=== PATIENT | female | born 1965 | race Caucasian/White ===

== ENCOUNTER 2018-06-26 07:29 | Outpatient (CLI) | payer OTHER, SELFPAY ==
--- NOTE | 2018-06-26 15:30 | DI.MAMMO_ITS ---
SYMPTOM/DIAGNOSIS: SCREENING FOR BREAST CANCER, Z12.31 BILATERAL SCREENING MAMMOGRAM: Mammograms were interpreted according to the usual protocol including computer analysis with CAD system, tomosynthesis and C view imaging. Comparison is made with exams from 2012 through 2017. The breasts are composed of heterogeneously dense fibroglandular tissue, breast density category C. No suspicious masses or suspicious microcalcifications are seen. There has been no significant change. IMPRESSION: Category 1-C, negative mammogram. Yearly screening mammography is recommended. [facility] ASSESSMENT OF FINDINGS: Negative. Category 1. Patient will receive a letter notifying them of these results. Bi-RADS category C. The breasts are heterogeneously dense, which may obscure small masses.
== END 2018-06-26 07:49 ==
PROVIDERS: PCP Internal Medicine; Visit Provider Internal Medicine
DX: Z12.31 Encounter for screening mammogram for malignant neoplasm of breast (principal)
CPT/HCPCS: 77063; 77067

== ENCOUNTER 2019-07-22 12:46 | Outpatient (REF) | payer OTHER, SELFPAY ==
--- NOTE | 2019-07-22 11:30 | PAPFT_PTH ---
PATIENT: Nicole Weir LOC: [facility] U#:[id number] AGE/SX: 54/F ROOM: RE07/22/[address]: Sweta Lees MD : [id number] BED: DIS: 07/22/2019 SPEC #: [id number] RECD: 07/23/19 13:06 STATUS: BLANKA REBrad #: [id number] CHARI: 07/22/19 11:[address]: Sweta Lees DEPT: [facility] Cytology RECD BY: Tamika Roldan Tissues: 1 - CX/ENDOCX FOR PAP SMEARS Procedures: PAP THIN PREP/UVM Screening HPV DNA PROBE Comments: [id number]
== END 2019-07-22 13:06 ==
LOC: LBN 12:46
PROVIDERS: PCP Internal Medicine; Visit Provider Internal Medicine
DX: Z12.4 Encounter for screening for malignant neoplasm of cervix (principal); Z11.51 Encounter for screening for human papillomavirus (HPV)
CPT/HCPCS: 88142; 87624

== ENCOUNTER 2019-10-26 02:01 | Outpatient (CLI) | payer OTHER, SELFPAY ==
--- NOTE | 2019-10-26 09:42 | DI.MAMMO_ITS ---
EXAM: MAMMO SCREENING CLINICAL HISTORY: screening,Z12.39 TECHNIQUE: Mammograms were interpreted according to the usual protocol including computer analysis w [employer] CAD system, tomosynthesis and C-view imaging. COMPARISON: FINDINGS: The breasts are heterogeneously dense. No dominant mass or clumped microcalcification is identified in either breast. The current examination is compared with multiple prior studies including May 2018. There is question of increased prominence of a focal area of asymmetric density projected in t he central portion of the left breast on CC view only. Additional mammographic views of this area ar e requested due to include CC spot compression view of left breast. No other significant change seen . IMPRESSION: Additional mammographic views left breast requested as described above. Breast ultrasound may be ind icated as well depending results additional views. BI-RADS Cat 0 - Assessment Incomplete: Need additional imaging evaluation: Breast Density - Category C - Heterogeneously dense:
== END 2019-10-26 02:21 ==
PROVIDERS: PCP Internal Medicine; Visit Provider Internal Medicine
DX: Z12.31 Encounter for screening mammogram for malignant neoplasm of breast (principal); R92.8 Other abnormal and inconclusive findings on diagnostic imaging of breast
CPT/HCPCS: 77063; 77067

== ENCOUNTER 2019-10-30 01:28 | Outpatient (CLI) | payer OTHER, SELFPAY ==
--- NOTE | 2019-10-30 | DI.US_ITS ---
EXAM: US BREAST LT LIMITED CLINICAL HISTORY: F/U MAMMO, ? INCREASED PROMINENCE ASYMMETRIC DENSITY CENTRAL PORTION LT TECHNIQUE: Ultrasound performed using standard protocol. COMPARISON: US PELVIS TRANSVAG from 11/15/2014 FINDINGS: Additional mammographic views the left breast and left breast ultrasound are interpreted in conjuncti on. These examinations were obtained to evaluate questionable area of asymmetric density projected i n central portion left breast on recent mammogram. Additional mammographic views fail to show a disc rete mass. Breast ultrasound shows dense fibroglandular tissue but no evidence of mass or cyst. IMPRESSION: No specific evidence of malignancy at this time. Follow-up unilateral left breast mammogram recommen ded in 6 months. BI-RADS Cat 3 - 6 month - Probably Benign Finding: Recommend follow-up mammography in 6 months Breast Density - Category C - Heterogeneously dense DATA REPOSITORY:
== END 2019-10-30 01:48 ==
PROVIDERS: PCP Internal Medicine; Visit Provider Surgery
DX: Z12.31 Encounter for screening mammogram for malignant neoplasm of breast (principal); R92.8 Other abnormal and inconclusive findings on diagnostic imaging of breast; N64.59 Other signs and symptoms in breast
CPT/HCPCS: 76642; 77063; 77067

== ENCOUNTER 2019-11-02 08:02 | Day surgery (SDC) | payer OTHER, SELFPAY ==
--- NOTE | 2019-11-02 06:55 | W.COLOREPORT ---
Date of service: 11/02/19 Time of Service: 10:03 Colonoscopy Report Date of procedure: 11/02/19 Pre-op diagnosis general: Family history of colon cancer, screening colonoscoopy Post-op diagnosis procedure note: same Procedure: Colonoscopy Surgeon: Natividad Simmons Anesthesia proc note operative: other (General/ ASA 3/Connie Gleason CRNA ) Estimated blood loss (mL): 0 Pathology: none sent Complications: None Disposition: same day Indications: 54-year-old female here to discuss a colonoscopy. Her last colonoscopy was 5 years ago and was normal. She does have a family history of colon cancer in her sister. Plan for Colonoscopy under sedation Risks, benefits and complications have been reviewed. Complications include but are not limited to bleeding, pain, perforation, missed small lesion/polyp, sore throat, aspiration and adverse reaction to the medications. Questions were entertained and answered to their satisfaction and they wished to proceed. No guarantees were given or implied. Prep: Miralax/Dulcolax Procedure Start Time: 10:03 Procedure End Time: 10:19 Retraction Time: 12 minutes Findings: Normal colon Procedure Description: After informed consent was obtained the patient was taken to the procedure room and placed in a left decubitous position. Monitors were applied and a time out was done. The patients name, date of , procedure, allergies to medications and metal in their body was reviewed. The patient was then sedated. Once sedated and comfortable a rectal exam was done. External exam was normal. Internal exam revealed a normal sphincter tone and no palpable masses. The scope was then introduced and retro-flexed. No internal hemorrhoids were identified. The scope was then advanced to the cecum without difficulty. The TI and appendiceal orifice were identified. The prep was good. The scope was then slowly retracted over 12 minutes back into the rectum. There were no diverticula and no polyps. The scope was removed and the patient was woken up and taken back to Same day surgery in stable condition. The patient tolerated the procedure well and there were no immediate complications. Follow up: The patient should follow up in 5 years unless they develop changes in bowel habits or other new gastrointestinal complaints.
--- NOTE | 2019-11-02 06:56 | PDOC.DSDIS_ITS ---
Discharge Plan Disposition Patient Disposition: HOME Condition: Good Discharge Details Reason For Visit: FHX of colon Cancer, screening colonoscopy Attending Provider: Natividad Simmons Primary Care Provider: Sweta Lees Home Meds and New Rx's Prescriptions: Continued triamcinolone acetonide 0.1 % cream 1 applic Topical DAILY PRN (Reason: dyshidrotic eczema) Qty: 15 RF: 0 multivitamin 1 EACH tablet 1 ea PO DAILY RF: 0 loratadine [Claritin] 10 MG tablet 10 mg PO DAILY RF: 0 calcium carbonate-vitamin D3 [Caltrate with Vitamin D3] 1 EACH tablet 1 ea PO DAILY RF: 0 pseudoephedrine HCl [Sudafed 12 Hour] 120 MG tablet extended release 120 mg PO DAILY RF: [facility], sprinkle 1 ea PO DAILY RF: 0 ascorbic acid (vitamin C) [Vitamin C] 500 MG tablet 1 tab PO DAILY RF: 0 Discontinued bisacodyl [Dulcolax (bisacodyl)] 5 mg tablet,delayed release (DR/EC) 5 mg PO ONCE Qty: 4 RF: 0 polyethylene glycol 3350 17 gram powder in packet 255 g PO DAILY Qty: 15 RF: 0 Discharge Instructions Additional Instructions: Findings: normal colon Follow up: 5 years Please call if you develop: fevers >101.5 Nausea or Vomiting Abdominal pain that is not transient DAY SURGERY UNIT POST ENDOSCOPY INSTRUCTIONS 1. Because there will be medication in your system for the next 24 hours, you may feel a little sleepy. Your coordination will be affected. Therefore: a. Do not drive or operate dangerous equipment for 24 hours. b. Do not drink alcohol beverages for 24 hours (not even beer). c. Plan to go home and rest for the day. 2. Generally there are no restrictions on your activity after a day or so has gone by, but you may feel a bit fatigued for a few days. 3 After you arrive home you may have a light meal and return to a normal diet as you can tolerate it without feeling sick to your stomach. 4. After surgery, you may feel pain or discomfort. This should be only transient, but if it persists please contact your doctor. 5. If there are any questions regarding the findings of your procedure, please feel free to contact your doctor. 6. If you are unable to contact your doctor with a problem, contact the hospital at [phone]. 7. Continue all your regular medications unless directed otherwise. I understand the above instructions and have no questions. Signature of Patient or Responsible Adult Escort Date/Time Name of Responsible Adult Escort Signature of Nurse Date/Time Activity:: Activity as Tolerated Diet:: As Tolerated Discharge Orders Discharge Orders: Discharge Order (Routine); Ordered 11/02/19 Ordered By: Natividad Simmosn
[2019-11-02 08:08] VITALS: BP 143/79; PULSE 73; RESP 18; TEMP 36.7; O2SAT 98
[2019-11-02] MEDS: Lactated Ringers 1,000 ML 80 ML IV (08:39)
[2019-11-02 10:54] VITALS: BP 125/66; PULSE 64; RESP 18; TEMP 36.4; O2SAT 97
== END 2019-11-02 11:15 | disposition home or self-care (01) ==
LOC: SUR 08:02
PROVIDERS: PCP Internal Medicine; Visit Provider Surgery
PROC: 0DJD8ZZ Inspection of Lower Intestinal Tract, Via Natural or Artificial Opening Endoscopic (ICD-10-PCS; CPT 45378; principal; 2019-11-02 09:00)
DX: Z12.11 Encounter for screening for malignant neoplasm of colon (principal); Z80.0 Family history of malignant neoplasm of digestive organs
CPT/HCPCS: 45378; J2001

== ENCOUNTER 2020-11-30 02:54 | Outpatient (CLI) | payer OTHER, SELFPAY ==
[2020-11-30 10:13] LABS: Calculated LDL 164 mg/dL (<100); Cholesterol 249 mg/dL (<200); Glucose 105 mg/dL (74-106); HDL Cholesterol 70 mg/dL (40-60); Triglyceride 75 mg/dL (<150)
== END 2020-11-30 02:55 | disposition home or self-care (01) ==
LOC: LBO 02:54
PROVIDERS: PCP Internal Medicine; Visit Provider Internal Medicine
DX: Z13.220 Encounter for screening for lipoid disorders (principal); Z13.1 Encounter for screening for diabetes mellitus; Z83.3 Family history of diabetes mellitus
CPT/HCPCS: 36415; 80061; 82947

== ENCOUNTER 2021-01-04 02:06 | Outpatient (CLI) | payer OTHER, SELFPAY ==
--- NOTE | 2021-01-04 07:15 | DI.MAMMO_ITS ---
Exam(s) MAMMO SCREENING EXAM: MAMMO SCREENING CLINICAL HISTORY: screening,Z12.39 TECHNIQUE: Mammograms were interpreted according to the usual protocol including computer analysis w [employer] CAD system, tomosynthesis and C-view imaging. COMPARISON: 2011 through 2019 FINDINGS: The breasts are composed of heterogeneously dense fibroglandular densities, Breast Density category C . No suspicious masses or suspicious microcalcifications are seen. No skin thickening or abnormal axillary lymph nodes are seen. There has been no significant change from prior exams. IMPRESSION: BI-RADS Category 1, Negative mammogram. Yearly screening mammography is recommended. Breast Density Category C, heterogeneously Dense. The mammogram demonstrates the patient's breast tissue is dense. Dense breast tissue is very common a nd is not abnormal but dense breast tissue can make it harder to find cancer on a mammogram. Also, de nse breast tissue may increase breast cancer risk. This information about the result of the mammogram report was provided to the patient to raise their awareness. Use this report when you speak with the patient about their risks for breast cancer, which includes their family history. At that time, you may recommend additional screening tests (Ultrasound or MRI) as they might be useful based on their r isk. A negative radiographic report should not delay biopsy if a dominant or clinically suspicious mass is present. Up to ten percent of cancers are not identified on mammography. A negative report may reinforce clinical impression. Adenosis and dense breasts may obscure an underlying neoplasm. False positive reports average 6 to 10%.
== END 2021-01-04 02:26 ==
PROVIDERS: PCP Internal Medicine; Visit Provider Internal Medicine
DX: Z12.31 Encounter for screening mammogram for malignant neoplasm of breast (principal)
CPT/HCPCS: 77063; 77067

== ENCOUNTER → 2022-04-24 01:52 | Outpatient (CLI) | payer OTHER, SELFPAY ==
--- NOTE | 2022-04-24 07:30 | DI.MAMMO_ITS ---
Exam(s) MAMMO SCREENING EXAM: MAMMO SCREENING CLINICAL HISTORY: screening,z12.39 TECHNIQUE: Bilateral full field digital CC and MLO mammographic images were obtained with 3D tomosyn thesis and utilizing computer aided detection (CAD). COMPARISON: Available for comparison. FINDINGS: Masses/Architectural Distortion: None seen. Microcalcifications: No suspicious pleomorphic-type are seen. Skin Thickening/Nipple Retraction: None. IMPRESSION: 1. No significant interval change with no specific features of malignancy noted. 2. Unless there is more urgent need, screening mammography is recommended, as per [place] [employer] guidelines. BI-RADS Category 1 - Negative Breast Density - Category C - Heterogeneously dense Breast density category C or D implies that the patient has dense breast tissue. Dense breast tissue is very common and is not abnormal but dense breast tissue can make it harder to find cancer on a ma mmogram. Also, dense breast tissue may increase their breast cancer risk. This information about the result of the mammogram report was provided to the patient to raise their awareness. Use this report when you speak with the patient about their risks for breast cancer, which includes their family hist ory. At that time, you may recommend for more screening tests (Ultrasound or MRI) as they might be us eful based on their risk. A negative radiographic report should not delay biopsy if a dominant or clinically suspicious mass is present. Up to ten percent of cancers are not identified on mammography. A negative report may reinforce clinical impression. Adenosis and dense breasts may obscure an underlying neoplasm. False positive reports average 6 to 10%. Patient will receive a letter notifying them of these results.
== END ==
PROVIDERS: PCP Nurse Practitioner; Visit Provider Nurse Practitioner
DX: Z12.31 Encounter for screening mammogram for malignant neoplasm of breast (principal); R92.8 Other abnormal and inconclusive findings on diagnostic imaging of breast
CPT/HCPCS: 77063; 77067

== ENCOUNTER 2022-07-03 03:47 | Outpatient (CLI) | payer OTHER, SELFPAY ==
[2022-07-03 09:03] LABS: HCT 40.9 % (36.0-46.0); HGB 13.4 g/dL (11.2-15.7); MCH 30.9 pg (27.0-33.0); MCHC 32.8 % (32.0-36.0); MCV 94 fL (80-95); MPV 11.2 fL (8.0-11.0); Platelet Count 247 10^3/uL (130-400); RBC 4.34 10^6/uL (3.93-5.22); RDW 12.1 % (11.7-14.6); RDW-SD 42.5 fL; WBC 5.76 10^3/uL (4.4-10.8)
[2022-07-03 09:18] LABS: Hemoglobin A1C 5.6 % (<5.7)
[2022-07-03 09:40] LABS: ALT 16 U/L (14-59); AST 14 U/L (15-37); Albumin 4.1 g/dL (3.4-5.0); Alkaline Phosphatase 89 U/L (46-116); Anion Gap 6.6 mmol/L (3-11); BUN 14 mg/dL (7-18); Bilirubin, Total 0.4 mg/dL (0.2-1.0); CO2 31.4 mmol/L (21.0-32.0); CREATININE 0.9 mg/dL (0.55-1.02); Calcium 9.8 mg/dL (8.5-10.1); Chloride 102 mmol/L (98-107); Glucose 100 mg/dL (74-106); Potassium 4.2 mmol/L (3.5-5.1); Sodium 140 mmol/L (136-145); Total Protein 7.6 g/dL (6.4-8.2)
[2022-07-04 16:47] LABS: Lab Add On Test DONE
[2022-07-04 18:14] LABS: Cholesterol 263 mg/dL (<200)
[2022-07-04 18:15] LABS: Calculated LDL 169 mg/dL (<100); Triglyceride 112 mg/dL (<150)
[2022-07-04 18:16] LABS: HDL Cholesterol 72 mg/dL (40-60)
== END 2022-07-03 03:48 | disposition home or self-care (01) ==
PROVIDERS: PCP Nurse Practitioner; Visit Provider Nurse Practitioner
DX: Z83.3 Family history of diabetes mellitus (principal); E66.8 Other obesity; Z13.1 Encounter for screening for diabetes mellitus
CPT/HCPCS: 36415; 80053; 80061; 85027; 83036

== ENCOUNTER 2024-03-25 00:36 | Outpatient (CLI) | payer OTHER, SELFPAY ==
--- NOTE | 2024-03-25 12:07 | DI.MAMMO_ITS ---
Exam(s) MAMMO SCREENING EXAM: MAMMO SCREENING CLINICAL HISTORY: screening,Z12.39 TECHNIQUE: Mammograms were interpreted according to the usual protocol including computer analysis w [employer] CAD system, tomosynthesis and C-view imaging. COMPARISON: 2014 through 2021 FINDINGS: The breasts are composed of heterogeneously dense fibroglandular densities, Breast Density category C . No suspicious masses or suspicious microcalcifications are seen. No skin thickening or abnormal axillary lymph nodes are seen. There has been no significant change from prior exams. IMPRESSION: BI-RADS Category 1, Negative mammogram. Yearly screening mammography is recommended. Breast Density Category C, heterogeneously Dense. The mammogram demonstrates the patient's breast tissue is dense. Dense breast tissue is very common a nd is not abnormal but dense breast tissue can make it harder to find cancer on a mammogram. Also, de nse breast tissue may increase breast cancer risk. This information about the result of the mammogram report was provided to the patient to raise their awareness. Use this report when you speak with the patient about their risks for breast cancer, which includes their family history. At that time, you may recommend additional screening tests (Ultrasound or MRI) as they might be useful based on their r isk. A negative radiographic report should not delay biopsy if a dominant or clinically suspicious mass is present. Up to ten percent of cancers are not identified on mammography. A negative report may reinforce clinical impression. Adenosis and dense breasts may obscure an underlying neoplasm. False positive reports average 6 to 10%.
== END 2024-03-25 00:56 ==
LOC: DI 00:37
PROVIDERS: PCP Nurse Practitioner; Visit Provider Nurse Practitioner
DX: Z12.31 Encounter for screening mammogram for malignant neoplasm of breast (principal)
CPT/HCPCS: 77063; 77067

== ENCOUNTER 2024-08-21 08:06 | Day surgery (SDC) | payer OTHER, SELFPAY ==
[2024-08-21 08:20] VITALS: BP 150/72; PULSE 75; RESP 20; TEMP 36; O2SAT 97
[2024-08-21] MEDS: Lactated Ringers 1,000 ML 80 ML IV (08:39)
--- NOTE | 2024-08-21 09:03 | W.ANESPRE ---
General Info Date of Service Date Performed: 08/21/24 Height: 5 ft 2 in Weight: 97.5 kg Body Mass Index (BMI): 39.3 Surgical Procedure: Operation Date: 08/21/24 09:05 Proposed Procedure Side Surgeon p Colonoscopy Arlene Rothman MD Meds Allergies and Home Medications Allergies Allergy/AdvReac Type Severity Reaction Status Date / Time sulfamethoxazole (From Allergy Intermediate Skin Rash Verified 08/21/24 08:18 Bactrim) trimethoprim (From Bactrim) Allergy Intermediate Skin Rash Verified 08/21/24 08:18 Home Medication ?Medication ?Instructions ?Recorded multivitamin 1 ea PO DAILY 10/07/12 calcium 600 mg (as 1 ea PO DAILY 10/25/14 carbonate)-vitamin D3 20 mcg (800 unit) tablet (Caltrate with Vitamin D3) ascorbic acid (vitamin C) 500 mg 1 tab PO DAILY 03/30/15 tablet (Vitamin C) Lactobacil rhamnosus GG 10 billion 1 ea PO DAILY 11/08/15 cell-inulin 200 mg sprinkle capsule ([facility]) triamcinolone acetonide 0.1 % 1 applic topical DAILY PRN 06/24/18 topical cream dyshidrotic eczema #15 grams pseudoephedrine HCl 120 mg 120 mg PO DAILY PRN 03/22/22 tablet,extended release (Sudafed 12 Hour) bisacodyl 5 mg tablet,delayed 5 mg PO ONCE colonscopy bowel prep 08/06/24 release (Dulcolax (bisacodyl)) #8 tabs bisacodyl 5 mg tablet,delayed 5 mg PO QHS 08/06/24 release (Dulcolax (bisacodyl)) polyethylene glycol 3350 17 238 g PO ONCE colonoscopy prep 08/06/24 gram/dose oral powder #238 grams Current Visit Medications: Current Medications Generic Name Dose Route Start Last Admin Trade Name Freq PRN Reason Stop Dose Admin Ringer's Solution 1,000 mls @ 80 mls/hr 08/21/24 06:00 08/21/24 08:39 IV 08/21/24 23:59 80 mls/hr INFUSION EMILIA Administration IV Miscellaneous Supplies 1 each 08/21/24 06:00 Iv Access IV 08/21/24 23:59 DIRECTED EMILIA Sodium Chloride 0 ml 08/21/24 06:00 Normal Saline Flush 10 Ml Syr IV 08/21/24 23:59 PRN PRN Sodium Chloride 0 ml 08/21/24 06:00 Normal Saline 10 Ml Vial IJ 08/21/24 23:59 DIRECTED PRN Sterile Water 0 ml 08/21/24 06:00 Water,Injection,Sterile 10 Ml Vial IJ 08/21/24 23:59 DIRECTED PRN PFSH Active Problems Active Problems: Problem Status Onset Code Screening for colorectal cancer Acute Z12.11, Z12.12 Medical History Medical History Acute cholecystitis (10/02/14) Dyshidrotic eczema Family history of colon cancer (10/25/14) Family history of diabetes mellitus (09/14/11) bmi: Normal colonoscopy (~10/2019) Obesity, Class III, BMI 40-49.9 (morbid obesity) Surgical History Surgical History section (05/27/93) Cholecystectomy (10/03/14) Colonoscopy - IV Sedation (03/30/15) DR.TERRY LITTLE H/O surgical procedure a. b. parotid tumor resection Hx of parotidectomy Tobacco Smoking/Tobacco Use Status: Never Passive smoking exposure: No Second hand exposure: No Alcohol Alcohol Intake: current Alcohol intake frequency: 0-2 drinks per day Substance Use Substance use: Never Substance use type: does not use Vital Signs and Lab Results Vital Signs Most Recent Vital Signs in EMR: Most Recent Vital Signs Temp Pulse Resp BP Pulse Ox 36.0 C L 75 20 150/72 H 97 08/21/24 08:20 08/21/24 08:20 08/21/24 08:20 08/21/24 08:20 08/21/24 08:20 Lab Results Blood Type / Crossmatch: No Data to Display Complete Blood Count: No Data to Display Complete Metabolic Panel: No Data to Display Liver Function Panel: No Data to Display Coagulation Panel: No Data to Display Cardiac Panel: No Data to Display Arterial Blood Gas: No Data to Display Venous Blood Gas: No Data to Display Pancreas Panel: No Data to Display Thyroid Panel: No Data to Display Infectious Disease: No Data to Display Blood Cultures: No Data to Display Toxicology Panel: No Data to Display Anesthesia Assessment and Plan Anesthesia History Personal History: Delayed Emergence (no issues with last colonoscopy) Family History: No Family History of Anesthesia Complications Exercise Tolerance Exercise Tolerance: Metabolic Equivalents>4 Pertinent Negatives Pertinent Negatives: No Symptoms of GERD, No Major Cardiovascular Symptoms or Complaints, No Major Pulmonary Symptoms or Complaints and No History of CVA/TIA Cardiac & Pulmonary Exam Cardiac Exam: Normal S1/S2 Heart Sounds Pulmonary Exam: Clear Bilateral Breath Sounds Implantable Cardiac Device Does patient have a Pacemaker or an ICD?: No Airway Exam Known Difficult Airway: No Mallampati Class: 2 Mouth Opening: Normal (> 3cm) Thyromental Distance: Greater than 3 cm Neck Range of Motion: Full ROM Neck Circumference: Normal Teeth Condition: Normal Dentition ASA Classification ASA Score: ASA 3 Emergency Case?: No NPO Status NPO Status: NPO Clears >2 hours, Solids >8 hours Anesthesia Plan Resuscitation Status: Full Code Anesthesia Technique: General Anesthesia Airway Planned: Natural Airway Monitors Used: Standard Monitors
[2024-08-21 09:05] VITALS: BMI 39.3
--- NOTE | 2024-08-21 09:08 | W.PM.HP.N ---
Date of service: 08/21/24 Time of Service: :08 Assessment and Plan Assessment and plan (1) Screening for colorectal cancer: Status: Acute Assessment and plan: I have explained the procedure of colonoscopy including the use of conscious sedation. I have outlined the risks of the procedure including those of bowel perforation, bleeding after a polypectomy, oversedation, and inability to complete the exam. The patient agrees to proceed and signed the consent form. History of Present Illness Narrative: This patient presents today for screening colonoscopy. She has had previous colonoscopies, had no difficulty with her bowel preparation. Review of Systems Narrative: Patient denies easy fatigue, poor appetite Cardiac: denies chest pain or irregular heartbeat Respiratory: denies dyspnea, SOLIS, cough Heme: denies easy bleeding, easy bruising PFSH All Active Problems Screening for colorectal cancer (Acute) Medical History Normal colonoscopy (~10/2019) Dyshidrotic eczema Obesity, Class III, BMI 40-49.9 (morbid obesity) Family history of colon cancer (10/25/14) Family history of diabetes mellitus (09/14/11) bmi: Acute cholecystitis (10/02/14) Surgical History Hx of parotidectomy section (05/27/93) Colonoscopy - IV Sedation (03/30/15) DR.TERRY LITTLE Cholecystectomy (10/03/14) H/O surgical procedure a. b. parotid tumor resection Family History Mother , pre leukemia, 2004, 78 years Essential hypertension Myeloid dysplasia Sister Personal history of malignant neoplasm 03/31/15 dx with colon CA RH Diabetes Father Pancreatic cancer Diabetes Social History Smoking/Tobacco Use Status: Never Second Hand Exposure: No Smoking risk assessment performed?: Yes Alcohol Intake: current Alcohol Intake frequency: 0-2 drinks per day Drug use: Never Substance use type: does not use Adopted: No Caregiver/Support person: No Foster care: No Household members: spouse Housing: house Number of Children: 1 number of grandchildren: 0 Communication Needs: None and Corrective Lenses Education Level: college Details: BS degree Do you need help understanding health information?: Never current occupation: retired educational administrator at [employer] Pets and animals: Yes Pets and animals: cat(s) Do you think of yourself as: straight/heterosexual Current gender identity: female What is your relationship status?: How often do you talk on the phone with friends or family?: once per week How often do you attend judaism or orthodox services?: decline to answer Do you belong to any clubs or organized social groups?: no Panel score (0-1 are the most socially isolated patients): 1 What type of physical activity do you participate in: bicycling and regular exercise Duration: 15-30 minutes/day Frequency: 3-4 times per week Jolene/Moravian: Rastafari Special jolene needs: No Seatbelt use: always Helmet use: Yes Drive intox or ride w/intox transporter driver: No Working smoke detector in home: Yes Fire extinguisher in home: Yes Carbon monox detector in home: Yes Do you feel safe at home: Yes Do you feel safe in your relationship?: Yes Victim of physical abuse: No Victim of emotional abuse: No Victim of sexual abuse: No Meds Allergies and Home Medications Allergies Allergy/AdvReac Type Severity Reaction Status Date / Time sulfamethoxazole (From Allergy Intermediate Skin Rash Verified 08/21/24 08:18 Bactrim) trimethoprim (From Bactrim) Allergy Intermediate Skin Rash Verified 08/21/24 08:18 Home Medications ?Medication ?Instructions ?Recorded ?Confirmed ?Type multivitamin 1 ea PO DAILY 10/07/12 08/21/24 History calcium 600 mg (as 1 ea PO DAILY 10/25/14 08/21/24 History carbonate)-vitamin D3 20 mcg (800 unit) tablet (Caltrate with Vitamin D3) ascorbic acid (vitamin C) 500 mg 1 tab PO DAILY 03/30/15 08/21/24 History tablet (Vitamin C) Lactobacil rhamnosus GG 10 billion 1 ea PO DAILY 11/08/15 08/21/24 History cell-inulin 200 mg sprinkle capsule ([facility]) triamcinolone acetonide 0.1 % 1 applic topical DAILY PRN 06/24/18 08/21/24 Rx topical cream dyshidrotic eczema #15 grams pseudoephedrine HCl 120 mg 120 mg PO DAILY PRN 03/22/22 08/21/24 History tablet,extended release (Sudafed 12 Hour) bisacodyl 5 mg tablet,delayed 5 mg PO ONCE colonscopy bowel prep 08/06/24 08/19/24 Rx release (Dulcolax (bisacodyl)) #8 tabs bisacodyl 5 mg tablet,delayed 5 mg PO QHS 08/06/24 08/19/24 History release (Dulcolax (bisacodyl)) polyethylene glycol 3350 17 238 g PO ONCE colonoscopy prep 08/06/24 08/19/24 Rx gram/dose oral powder #238 grams Exam Narrative Exam Narrative: Constitutional: appears well, alert, oriented, NAD HEENT: normal appearance, head atraumatic, Neck midline Chest: clear to auscultation Cor: RRR S1 S2 no murmur abdo: obese, soft and non tender Psych: normal mood and affect Results Last Vital Signs Temp 36.0 C L 08/21/24 08:20 Pulse 75 08/21/24 08:20 Resp 20 08/21/24 08:20 BP 150/72 H 08/21/24 08:20 Pulse Ox 97 08/21/24 08:20 Time Spent Time spent with Patient: <40 minutes Time was spent: preparing to see the patient(eg.review tests), obtaining and/or reviewing separately otained hiistory and counseling the patient
--- NOTE | 2024-08-21 09:42 | W.COLOREPORT ---
Date of service: 08/21/24 Time of Service: 09:42 Colonoscopy Report Date of procedure: 08/21/24 Pre-op diagnosis general: screening for colon polyps Post-op diagnosis procedure note: same Procedure: colonoscopy Surgeon: Arlene Rothman Anesthesia Type: General:No Airway Estimated blood loss (mL): 0 Pathology: none sent Complications: None Disposition: same day Indications: patient presents for colon screening Findings: normal colonoscopy, no polyps, excellent prep Procedure Description: After the risks, benefits, and alternatives of the procedure were thoroughly explained, informed consent was obtained. The Patient is brought to the procedure room and time out is performed confirming patient identity, nature of procedure. Patient is connected to monitoring devices including O2 sat, EKG and given supplemental oxygen per anesthesia. After appropriate anesthetic is obtained, patient is placed in the left lateral decubitus position and digital rectal exam performed with the findings noted . The colonoscope is inserted through the anus and guided under direct vision to the proximal colon as confirmed by presence of the appendiceal orifice and the ileocecal valve. The colonoscope is then slowly withdrawn , inspecting all aspects of the mucosa completely. Findings and any associated intervention, are noted above. The colonoscope was then completely withdrawn from the patient and the procedure terminated. The patient tolerated the procedure well and is transferred back to the Day surgery unit in stable condition.
--- NOTE | 2024-08-21 09:44 | W.PM.DSUDISC ---
Date of service: 08/21/24 Discharge Plan Disposition Patient Disposition: Home Discharge Details Attending Provider: Arlene Rothman Primary Care Provider: Marisela Britt Home Meds and New Rx's Prescriptions: No Action triamcinolone acetonide 0.1 % cream 1 applic Topical DAILY PRN (Reason: dyshidrotic eczema) Qty: 15 0RF Rx Instructions: apply thin layer to affected area qd prn; do not use more than 14 days in a row multivitamin 1 EACH tablet 1 ea PO DAILY calcium carbonate-vitamin D3 [Caltrate with Vitamin D3] 1 EACH tablet 1 ea PO DAILY [facility] Total Immersion 1 EACH capsule, sprinkle 1 ea PO DAILY pseudoephedrine HCl [Sudafed 12 Hour] 120 mg tablet extended release 120 mg PO DAILY PRN bisacodyl [Dulcolax (bisacodyl)] 5 mg tablet,delayed release (DR/EC) 5 mg PO QHS polyethylene glycol 3350 17 gram/dose powder 238 g PO ONCE Qty: 238 0RF Rx Instructions: take per colonoscopy instructions bisacodyl [Dulcolax (bisacodyl)] 5 mg tablet,delayed release (DR/EC) 5 mg PO ONCE Qty: 8 0RF Rx Instructions: take per colonoscopy instructions ascorbic acid (vitamin C) [Vitamin C] 500 MG tablet 1 tab PO DAILY Discharge Instructions Additional Instructions: Your colonoscopy today was normal and you had an excellent bowel prep. Because you have no polyps I recommend you repeat screening colonoscopy in 10 years. DS: Diagnosis Discharge Diagnosis (1) Screening for colorectal cancer: Status: Acute
[2024-08-21 09:45] VITALS: BP 126/75; PULSE 72; RESP 16; TEMP 36.2; O2SAT 98
[2024-08-21 10:10] VITALS: BP 126/75; PULSE 62; RESP 16; TEMP 36.2; O2SAT 98
--- NOTE | 2024-08-21 12:27 | W.ANESPOSTOP ---
Postoperative Evaluation Date, Time and Location Date Performed: 08/21/24 Time Performed: 10:10 Patient Location: Day Surgery Unit Vital Signs Most Recent Imported Vital Signs: Most Recent Vital Signs Temp Pulse Resp BP Pulse Ox 36.2 C L 62 16 126/75 98 08/21/24 10:10 08/21/24 10:10 08/21/24 10:10 08/21/24 10:10 08/21/24 10:10 Pain Score Most Recent Pain Score: Most Recent Pain Score Pain Level 0 08/21/24 10:10 Assessment Mental Status: Awake (Alert & Oriented to Patient Baseline) Airway and Respiratory Function: Patent airway with normal (patient baseline) respiratory exam Cardiovascular Function: Hemodynamically Stable Hydration Status: Adequately Hydrated Nausea & Vomiting: No Nausea or Vomiting Pain: Pt. Denies Any Pain Peripheral Nerve Block: Patient did not receive a nerve block
== END 2024-08-21 10:35 | disposition home or self-care (01) ==
PROVIDERS: PCP Nurse Practitioner; Visit Provider Surgery
PROC: 0DJD8ZZ Inspection of Lower Intestinal Tract, Via Natural or Artificial Opening Endoscopic (ICD-10-PCS; CPT 45378; principal; 2024-08-21 09:00)
DX: Z12.11 Encounter for screening for malignant neoplasm of colon (principal); Z12.12 Encounter for screening for malignant neoplasm of rectum
CPT/HCPCS: 45378; J2003; J2704

== ENCOUNTER 2024-09-16 14:09 | Outpatient (REF) | payer OTHER, SELFPAY ==
--- NOTE | 2024-09-16 14:00 | PAPFT_PTH ---
PATIENT: Nicole Weir LOC: [facility] U#:[id number] AGE/SX: 59/F ROOM: RE09/16/[address]: Marisela Britt APRN : 1965 BED: DIS: 09/16/2024 SPEC #: [id number] RECD: 09/17/24 12:49 STATUS: BLANKA REQ #: [id number] CHARI: 09/16/24 14:[address]: Marisela Britt DEPT: [facility] Cytology RECD BY: Tamika Roldan Tissues: 1 - CX/ENDOCX FOR PAP SMEARS Procedures: PAP THIN PREP/[facility] Screening HPV DNA PROBE Comments: [id number] (HPV 16 & 18/45)
== END 2024-09-16 14:10 | disposition home or self-care (01) ==
LOC: LBN 14:09
PROVIDERS: PCP Nurse Practitioner; Visit Provider Nurse Practitioner
DX: Z12.4 Encounter for screening for malignant neoplasm of cervix (principal); R87.619 Unspecified abnormal cytological findings in specimens from cervix uteri
CPT/HCPCS: 88142; 87624